=== PATIENT | female | born 1965 | race Caucasian/White ===

== ENCOUNTER 2020-04-15 10:42 | Emergency (ER) | payer OTHER ==
[2020-04-15 10:57] VITALS: BP 148/66; PULSE 65; TEMP 97.8; BMI 40.3
== END 2020-04-15 12:41 | disposition home or self-care (01) ==
LOC: FER 10:42
DX: M25.511 Pain in right shoulder (principal)
CPT/HCPCS: 73030-TC-RT-FY; 99283-25

== ENCOUNTER 2022-10-23 18:49 | Emergency (ER) | payer OTHER ==
[2022-10-23 19:05] VITALS: TEMP 98.7; BMI 31.4
[2022-10-23 19:48] LABS: HEMATOCRIT 39.6 % (32.4-45.2); HEMOGLOBIN 13.4 G/dL (10.7-15.3); MCH 28.7 pg (25.7-33.7); MCHC 33.8 g/dl (32.0-36.0); MEAN CELL VOLUME 84.9 fl (80-96); MEAN PLT VOLUME 8.5 fl (7.5-11.1); PLATELET COUNT 404.3 10^3/uL (134-434); RBC 4.67 10^6/uL (3.60-5.2); RDW 17.5 % (11.6-15.6); WHITE BLOOD COUNT 10.6 10^3/uL (4.0-10.8)
[2022-10-23 19:57] LABS: ALBUMIN 3.9 g/dl (3.4-5.0); BILIRUBIN,TOTAL 0.5 mg/dl (0.2-1); CALCIUM 9.2 mg/dl (8.5-10); CREATININE 0.7 mg/dl (0.55-1.3); POTASSIUM 3.8 mmol/L (3.5-5.1); TOT PROT 7.1 g/dl (6.4-8.2)
[2022-10-23 20:21] VITALS: RESP 20
[2022-10-23 20:26] LABS: PLATELET ESTIMATE ADEQUATE
[2022-10-23 21:16] VITALS: BP 112/65; PULSE 80
== END 2022-10-23 21:37 | disposition home or self-care (01) ==
LOC: FER 18:49
DX: R06.02 Shortness of breath (principal); J90 Pleural effusion, not elsewhere classified
CPT/HCPCS: 36415; 71046-TC-FY; 80053; 85027; 99284-25